=== PATIENT | female | born 1985 | race Caucasian/White ===

== ENCOUNTER 2018-11-14 16:45 | Emergency (ER) | payer SELFPAY ==
[2018-11-14 18:29] LABS: Absolute Lymphocytes (CBC) 3.7 K/uL (0.7-4.9); Absolute Monocytes 0.6 K/uL (0.1-1.3); Absolute Neutrophil 4.8 K/uL (1.8-8.0); Eosinophils % 1.9 % (0-4.4); Hematocrit 46.1 % (36.0-45.0); Lymphocytes % 39.3 % (15.3-44.8); MPV 7.6 fL (7.6-11.3); Monocytes % 6.6 % (3.3-12.3); RBC Red Blood Cell Count 5.19 M/uL (3.86-4.86)
[2018-11-14 18:51] LABS: ALT/SGPT 73 U/L (12-78); AST/SGOT 26 U/L (15-37); Albumin 4.1 g/dL (3.4-5.0); Alkaline Phosphatase 78 U/L (45-117); BUN Blood Urea Nitrogen 15 mg/dL (7-18); Bicarbonate 30 mmol/L (21-32); Bilirubin Direct < 0.1 mg/dL (0-0.2); Bilirubin Total 0.4 mg/dL (0.2-1.0); Glucose Level 121 mg/dL (74-106); Lipase 352 U/L (73-393); Potassium 4.1 mmol/L (3.5-5.1); Protein, Total 7.4 g/dL (6.4-8.2); Sodium Level 138 mmol/L (136-145)
--- NOTE | 2018-11-14 19:24 | RAD REPORT ---
EXAM DESCRIPTION: CT - Abdomen Pelvis W Contrast - 11/14/2018 7:12 pm CLINICAL HISTORY: Abdominal pain COMPARISON: None. TECHNIQUE: Biphasic, helical CT imaging of the abdomen and pelvis was performed following 100 ml non -ionic IV contrast. No oral contrast administered All CT scans are performed using dose optimization technique as appropriate and may include automated exposure control or mA/KV adjustment according to patient size. FINDINGS: No suspicious findings in the lung bases. The liver, spleen, and pancreas show no suspicious findings. Cholecystectomy clips are present. No bi liary tree dilatation. Symmetric renal function is seen with no hydronephrosis or suspicious renal mass. No pyelonephritis o r acute parenchymal process. No bladder abnormalities. No adrenal abnormalities. Uterus is absent. Ov chinmay appear to be absent as well. No adnexal mass. Multiple phleboliths are present. No gastric wall thickening or mass. Gastric assessment is limited due to only a small quantity of con tent within the lumen. No dilated large or small bowel. The appendix is normal. No focal or diffuse G I abnormality seen to explain rectal blood. No free air, free fluid or inflammatory stranding. No h ernia, mass or bulky lymphadenopathy. No suspicious bony findings. No acute vascular finding. IMPRESSION: Contrast enhanced CT abdomen and pelvis showing no acute finding.
[2018-11-14 19:38] LABS: Urine Blood NEGATIVE (NEG); Urine Glucose NEGATIVE (NEG); Urine Protein NEGATIVE (NEG); Urine Specific Gravity >1.030 (1.005-1.030); Urine pH 5.5 (5.0-7.0)
--- NOTE | 2018-11-14 19:44 | EDPHYS ---
Physician Documentation [facility] Name: Frieda Simon Age: 33 yrs Sex: Female : 1985 Arrival Date: 11/14/2018 Time: 16:48 Bed 18 Private MD: ED Physician Willie Yee HPI: 11/14 17:22 This 33 yrs old Female presents to ER via Ambulatory with complaints of jmm Abdominal Swelling, Bloody Stools. 17:22 The patient presents with abdominal pain that is diffuse. Onset: The symptoms/episode jmm began/occurred gradually, 1 day(s) ago. The symptoms do not radiate. Associated signs and symptoms: Pertinent positives:. This is a 33 year old female with no chronic medical conditions that presents to the ED with complaints of abdominal distension beginning last night with bright red bowel movements. Patient states she is currently on antibiotics for h.pylori infection. Denies fever. . 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 - Social history:: Smoking status: Patient uses tobacco products, smokes one-half pack cigarettes per day. - Ebola Screening: : Patient negative for fever greater than or equal to 101.5 degrees Fahrenheit, and additional compatible Ebola Virus Disease symptoms Patient denies exposure to infectious person Patient denies travel to an Ebola-affected area in the 21 days before illness onset No symptoms or risks identified at this time. ROS: 17:22 Constitutional: Negative for fever, chills, and weight loss, Cardiovascular: Negative jmm for chest pain, palpitations, and edema, Respiratory: Negative for shortness of breath, cough, wheezing, and pleuritic chest pain. 17:22 Back: Negative for injury and pain, Skin: Negative for injury, rash, and discoloration. 17:22 Abdomen/GI: Positive for abdominal pain, rectal bleeding. 17:22 Abdomen/GI: Positive for abdominal distension. 17:22 All other systems are negative. Exam: 17:22 Constitutional: This is a well developed, well nourished patient who is awake, alert, jmm and in no acute distress. Head/Face: atraumatic. Eyes: EOMI, no conjunctival erythema appreciated ENT: Moist Mucus Membranes Neck: Trachea midline, Supple Chest/axilla: Normal chest wall appearance and motion. Cardiovascular: Regular rate and rhythm. No edema appreciated Respiratory: Normal respirations, no respiratory distress appreciated 17:22 Abdomen/GI: Inspection: abdomen appears normal, Bowel sounds: normal, Palpation: soft, mild abdominal tenderness, in all quadrants. 17:22 Back: ROM is normal. 17:22 Musculoskeletal/extremity: ROM: intact in all extremities. 17:22 Skin: Appearance: Color: normal in color. 17:22 Neuro: Orientation: is normal, Mentation: is normal, Memory: is normal. 17:22 Psych: Behavior/mood is pleasant, cooperative. Vital Signs: 17:00 Pulse 87; Resp 17; Temp 98.6; Pulse Ox 100% on R/A; Weight 99.79 kg; Height 5 ft. 8 in. sg (172.72 cm); Pain 8/10; 17:00 BP 142 / 87; sg 17:49 BP 97 / 57; Pulse 79; Resp 18; Pulse Ox 98% on R/A; aj1 18:40 BP 110 / 71; Pulse 70; Resp 18; Pulse Ox 100% on R/A; aj1 19:30 BP 107 / 85; Pulse 68; Resp 16; Pulse Ox 100% on R/A; jb4 17:00 Body Mass Index 33.45 (99.79 kg, 172.72 cm) sg MDM: 17:22 Patient medically screened. [facility] 19:43 Data reviewed: vital signs, nurses notes. Counseling: I had a detailed discussion with mally the patient and/or guardian regarding: the historical points, exam findings, and any diagnostic results supporting the discharge/admit diagnosis, lab results, radiology results, the need for outpatient follow up, to return to the emergency department if symptoms worsen or persist or if there are any questions or concerns that arise at home. ED course: Patient is alert and non toxic in appearance in the ED. Patient was advised to follow up with GI for further evaluation. patient is otherwise given strict return precautions. patient understood and agrees with the plan of care. . 11/14 17: Order name: Basic Metabolic Panel [facility] 11/14 17:27 Order name: CBC with Diff [facility] 11/14 16:27 Order name: Creatinine for Radiology [facility] 11/14 17:27 Order name: Hepatic Function [facility] 11/14 17:27 Order name: Lipase [facility] 11/14 17:27 Order name: Type And Screen; Complete Time: 20:03 [facility] 11/14 17:27 Order name: Basic Metabolic Panel; Complete Time: 19:02 [facility] 11/14 17:27 Order name: CBC with Automated Diff; Complete Time: 19:02 [facility] 11/14 17:27 Order name: Creatinine (Radiology Only); Complete Time: 19:02 [facility] 11/14 17:27 Order name: Liver (Hepatic) Function; Complete Time: 19:02 [facility] 11/14 17:27 Order name: Lipase; Complete Time: 19:02 [facility] 11/14 18:50 Order name: Urine Dipstick--Ancillary (enter results); Complete Time: 19:44 11/14 18:50 Order name: Urine --Ancillary (enter results); Complete Time: 19:44 11/14 19:55 Order name: ABO/RH no charge; Complete Time: 20:03 [facility] 11/14 17:27 Order name: IV Saline Lock; Complete Time: 18:15 [facility] 11/14 17:27 Order name: Labs collected and sent; Complete Time: 18:15 [facility] 11/14 17:27 Order name: CT Abd/Pelvis - W/Contrast; Complete Time: 19:26 [facility] Administered Medications: No medications were administered Disposition: 11/15 18:56 Co-signature as Attending Physician, Willie Yee MD I agree with the assessment and kdr plan of care. Disposition: 11/14/18 19:43 Discharged to Home. Impression: Unspecified abdominal pain. - Condition is Stable. - Discharge Instructions: Abdominal Pain, Adult, Rectal Bleeding. - Medication Reconciliation Form, Thank You Letter, Antibiotic Education, Prescription Opioid Use form. - Follow up: Fiorella Dang MD; When: 2 - 3 days; Reason: Recheck today's complaints, Continuance of care, Re-evaluation by your physician. Signatures: Dispatcher [employer] [facility] Kishore Davis RN RN sg Willie Yee MD MD kdr Mickail, Joel, PA PA [facility] Vignesh Gaston RN RN jb4 Corrections: (The following items were deleted from the chart) 11/14 20:11 19:43 11/14/2018 19:43 Discharged to Home. Impression: Unspecified abdominal pain. jb4 Condition is Stable. Forms are Medication Reconciliation Form, Thank You Letter, Antibiotic Education, Prescription Opioid Use. Follow up: Fiorella Dang; When: 2 - 3 days; Reason: Recheck today's complaints, Continuance of care, Re-evaluation by your physician. mally
--- NOTE | 2018-11-14 19:44 | ER ---
Nurse's Notes [facility] Name: Frieda Simon Age: 33 yrs Sex: Female : 1985 Arrival Date: 11/14/2018 Time: 16:48 Bed 18 Private MD: Diagnosis: Unspecified abdominal pain Presentation: 11/14 17:02 Presenting complaint:. Transition of care: patient was not received from another setting of care. Onset of symptoms was November 14, 2018. Risk Assessment: Do you want to hurt yourself or someone else? Patient reports no desire to harm self or others. Initial Sepsis Screen: Does the patient meet any 2 criteria? No. Patient's initial sepsis screen is negative. Does the patient have a suspected source of infection? Yes: Acute abdominal pain. Care prior to arrival: None. 17:02 Acuity: AMEE 3 sg 17:02 Method Of Arrival: Ambulatory 17:03 Presenting complaint: Patient states: Currently being treated for H Pylori by providers sg at the [facility], pt reports that she started medications on the 11/11/18 has not noticed any improvement, reports getting worse with pain and abdominal distention, pt also reports bright red blood in her stool. [employer]: 17:00 LMP N/A - Hysterectomy sg Historical: - Allergies: 17:02 No Known Allergies; sg - PMHx: 17:01 ADD/ADHD; sg - PSHx: 17:01 Hysterectomy; Thyroidectomy; sg - Immunization history:: Adult Immunizations up to date. - Social history:: Smoking status: Patient uses tobacco products, smokes one-half pack cigarettes per day. - Ebola Screening: : Patient negative for fever greater than or equal to 101.5 degrees Fahrenheit, and additional compatible Ebola Virus Disease symptoms Patient denies exposure to infectious person Patient denies travel to an Ebola-affected area in the 21 days before illness onset No symptoms or risks identified at this time. Screenin:49 Abuse screen: Denies threats or abuse. Denies injuries from another. Nutritional aj1 screening: Has had N/V for 3 or more days. Tuberculosis screening: No symptoms or risk factors identified. 19:00 Fall Risk IV access (20 points). Total Pleitez Fall Scale indicates No Risk (0-24 pts). jb4 Assessment: 17:49 General: Appears in no apparent distress. uncomfortable, Behavior is calm, cooperative, aj1 appropriate for age. Pain: Complains of pain in right upper quadrant and right lower quadrant Pain does not radiate. Pain currently is 8 out of 10 on a pain scale. Quality of pain is described as stabbing, Is intermittent. Neuro: Level of Consciousness is awake, alert, obeys commands, Oriented to person, place, time, situation. Cardiovascular: Patient's skin is warm and dry. Respiratory: Airway is patent Respiratory effort is even, unlabored, Respiratory pattern is regular, symmetrical. GI: Abdomen is round Bowel sounds present X 4 quads. Abdomen is tender to palpation in right upper quadrant and right lower quadrant Reports constipation, diarrhea, bloody stool, nausea, Patient currently denies vomiting. : No signs and/or symptoms were reported regarding the genitourinary system. EENT: No signs and/or symptoms were reported regarding the EENT system. Derm: No signs and/or symptoms reported regarding the dermatologic system. Skin is pink, warm \T\ dry. normal. Musculoskeletal: No signs and/or symptoms reported regarding the musculoskeletal system. Circulation, motion, and sensation intact. 18:40 Reassessment: Patient appears in no apparent distress at this time. No changes from aj1 previously documented assessment. Patient and/or family updated on plan of care and expected duration. Pain level reassessed. Patient is alert, oriented x 3, equal unlabored respirations, skin warm/dry/pink. 19:15 Reassessment: Patient appears in no apparent distress at this time. Patient and/or jb4 family updated on plan of care and expected duration. Pain level reassessed. Patient is alert, oriented x 3, equal unlabored respirations, skin warm/dry/pink. Vital Signs: 17:00 Pulse 87; Resp 17; Temp 98.6; Pulse Ox 100% on R/A; Weight 99.79 kg; Height 5 ft. 8 in. sg (172.72 cm); Pain 8/10; 17:00 BP 142 / 87; sg 17:49 BP 97 / 57; Pulse 79; Resp 18; Pulse Ox 98% on R/A; aj1 18:40 BP 110 / 71; Pulse 70; Resp 18; Pulse Ox 100% on R/A; aj1 19:30 BP 107 / 85; Pulse 68; Resp 16; Pulse Ox 100% on R/A; jb4 17:00 Body Mass Index 33.45 (99.79 kg, 172.72 cm) ED Course: 16:48 Patient arrived in ED. rg4 16:53 Arm band placed on. 17:02 Triage completed. 17:12 Mert Girard PA is PHCP. [facility] 17:12 Willie Yee MD is Attending Physician. [facility] 17:27 Lia Quarles, RN is Primary Nurse. aj1 17:37 Radiology exam delayed due to lab results not completed at this time. (BUN/Creatinine). vm2 17:49 Patient has correct armband on for positive identification. Bed in low position. Call aj1 light in reach. Side rails up X 1. 17:49 No provider procedures requiring assistance completed. aj1 17:59 Radiology exam delayed due to lab results not completed at this time. (BUN/Creatinine). 2 18:16 Initial lab(s) drawn, by wi, sent to lab. Inserted saline lock: 20 gauge in right [facility] antecubital area, using aseptic technique. Blood collected. 18:27 Radiology exam delayed due to lab results not completed at this time. (BUN/Creatinine). id 18:50 Urine collected: clean catch specimen, clear. [facility] 18:[address] via wheelchair. 2 19:11 [address] completed. Patient tolerated procedure well. Patient moved back from CT. 2 19:12 CT Abd/Pelvis - W/Contrast In Process Unspecified. EDIN 19:43 Fiorella Dang MD is Referral Physician. [facility] 20:10 IV discontinued, intact, bleeding controlled, No redness/swelling at site. Pressure jb4 dressing applied. Administered Medications: No medications were administered Outcome: 19:43 Discharge ordered by . [facility] 20:10 Discharged to home ambulatory. jb4 20:10 Condition: stable 20:10 Discharge instructions given to patient, Instructed on discharge instructions, follow up and referral plans. Demonstrated understanding of instructions, follow-up care. 20:11 Patient left the ED. jb4 Signatures: Dispatcher [employer] EDMS Lia Quarles, SHAWN RN [email or web address] Kishore Davis RN RN Mert Girard PA PA [facility] Lorraine Vidales 4 Vignesh Gaston RN RN 4 Rigo Schrader Maria [facility] Sheikh, Lanie vm2
[2018-11-14 21:04] VITALS: TEMP 98.6
[2018-11-14 21:10] VITALS: O2SAT 100
[2018-11-14 21:12] VITALS: BP 107/85
== END 2018-11-14 20:11 | disposition home or self-care (01) ==
LOC: ER 16:45
DX: R10.9 Unspecified abdominal pain (principal); F17.210 Nicotine dependence, cigarettes, uncomplicated
CPT/HCPCS: 36415; 74177; 80048; 80076; 81003; 81025; 83690; 85025; 86850; 86900; 86901; 99284; Q9967

== ENCOUNTER 2024-05-13 08:28 | Emergency (ER) | payer OTHER, SELFPAY ==
--- OUTSIDE RECORDS SUMMARY | 2024-05-13 08:33 | XMS REPORT | Continuity of Care Document ---
Author Name Unknown Address [address] [facility]. [address] [place] [address] [facility] Address [address] [facility] [address] [place] [address] Care Team Providers Care Cash On Delivery Clerk Name Role Phone Laci Toney Primary Care Physician Medications Ordered Medication Name Filled Medication Name Start Date Stop Date Current Medication? Ordering Clinician Indication Dosage Frequency Signature (SIG) Comments Components Source Wellbutrin XL 300 mg 24 hr tablet, extended release 2023-0 8-15 00:00: 00 Yes 1mg Osmani Walter Lamictal 25 mg tablet 2023-0 8-15 00:00: 00 Yes 2mg Osmani Walter Wellbutrin XL 300 mg 24 hr tablet, extended release 2023-0 7-16 00:00: 00 Yes 1mg Osmani Walter Lamictal 25 mg tablet 2023-0 7-16 00:00: 00 Yes 2mg Osmani Walter Wellbutrin XL 150 mg 24 hr tablet, extended release 2023-0 6-12 00:00: 00 Yes 1mg Osmani Walter Lamictal 25 mg tablet 2023-0 6-12 00:00: 00 Yes 2mg Osmani Walter amitriptyli ne 25 mg tablet 2023-0 6-12 00:00: 00 Yes 1mg Osmani Levi Walter Wellbutrin XL 150 mg 24 hr tablet, extended release 2023-0 5-29 00:00: 00 Yes 1mg Osmani Walter amitriptyli ne 25 mg tablet 2023-0 5-29 00:00: 00 Yes 1mg Osmani Levi Walter Lamictal 25 mg tablet 2023-0 5-29 00:00: 00 Yes 4mg Osmani Walter mirtazapine 15 mg tablet 01-28 00:00: 00 Yes 1mg Osmani Walter Lamictal 25 mg tablet 01-28 00:00: 00 Yes 1mg Osmani Walter amitriptyli ne 50 mg tablet 01-28 00:00: 00 Yes 1mg Osmani Walter TAKE 2 TABLETS BY MOUTH ON DAY 1, AND THEN TAKE 1 TABLET BY MOUTH ONCE A DAY ON DAY 2 THROUGH DAY 5 03-01 00:00: 00 Yes Osmani Walter TAKE BY MOUTH DIRECTED ON INSIDE OF PACKAGE 03-01 00:00: 00 Yes Osmani Walter hydroxyzine HCl 50 mg tablet 12-24 00:00: 00 Yes 12mg Osmani Walter Cymbalta 60 mg capsule,del ayed release 12-24 00:00: 00 Yes 1mg Osmani Walter Cymbalta 30 mg capsule,del ayed release 12-24 00:00: 00 Yes 1mg Osmani Walter loratadine- pseudoephed rine ER 10 mg-240 mg tablet,exte nded [id number] 2018-09 00:00: 00 Yes 1mg Osmani Walter prednisone 20 mg tablet 2018-09 00:00: 00 Yes 1mg Osmani Walter amoxicillin 875 mg-potassiu m clavulanate 125 mg tablet 2018-09 00:00: 00 Yes 1mg Osmani Walter Bromfed DM 2 mg-30 mg-10 mg/5 mL oral syrup 2018-09 00:00: 00 Yes 5mg/5 mL Osmani Walter Cymbalta 60 mg capsule,del ayed release 2018-09 00:00: 00 Yes 2mg Osmani Walter hydroxyzine HCl 50 mg tablet 2018-09 00:00: 00 Yes 1mg Osmani Walter Cymbalta 60 mg capsule,del ayed release 2018-09 00:00: 00 Yes 2mg Osmani Walter hydroxyzine HCl 50 mg tablet 03-28 00:00: 00 Yes 1mg Osmani Walter trazodone 50 mg tablet 03-28 00:00: 00 Yes 1mg Osmani Walter Cymbalta 60 mg capsule,del ayed release 0 03-28 00:00: 00 Yes 2mg Osmani Walter trazodone 50 mg tablet 0 03-13 00:00: 00 Yes 51mg Osmani Walter Cymbalta 60 mg capsule,del ayed release 0 6 00:00: 00 Yes 1mg Osmani Walter trazodone 50 mg tablet 0 6 00:00: 00 Yes 51mg Osmani Walter Cymbalta 60 mg capsule,del ayed release 0 6 00:00: 00 Yes 1mg Osmani Walter Cymbalta 60 mg capsule,del ayed release 0 31 00:00: 00 Yes 1mg Osmani Walter Protonix 40 mg tablet,randy yed release 0 18 00:00: 00 Yes 1mg Osmani Walter clonidine HCl 0.2 mg tablet 0 16 00:00: 00 Yes 1mg Osmani Walter Cymbalta 30 mg capsule,del ayed release 0 16 00:00: 00 Yes 1mg Osmani Walter Cymbalta 60 mg capsule,del ayed release 0 16 00:00: 00 Yes 1mg Osmani Walter clonidine HCl 0.1 mg tablet 0 23 00:00: 00 Yes 1mg Osmani Walter Cymbalta 60 mg capsule,del ayed release 0 23 00:00: 00 Yes 1mg Osmani Wlater hydroxyzine HCl 50 mg tablet 0 19 00:00: 00 Yes 1mg Osmani Walter clonidine HCl 0.1 mg tablet 0 -19 00:00: 00 Yes 1mg Osmani Walter Cymbalta 60 mg capsule,del ayed release 0 19 00:00: 00 Yes 1mg Osmani Walter prednisone 5 mg tablet 0 15 00:00: 00 Yes 1mg Osmani Walter clarithromy constance 500 mg tablet 0 2-25 00:00: 00 Yes 1mg Osmani Walter amoxicillin 500 mg tablet 0 2-25 00:00: 00 Yes 2mg Osmani Walter pantoprazol e 40 mg tablet,randy yed release 11-11 00:00: 00 Yes 1mg Osmani Walter Cymbalta 30 mg capsule,del ayed release 11-06 00:00: 00 Yes 1mg Osmani Walter fluticasone propionate 50 mcg/actuati on nasal spray,suspe nsion 11-05 00:00: 00 Yes 2mcg/ac tuation Osmani Walter ProAir HFA 90 mcg/actuati on aerosol inhaler 11-05 00:00: 00 Yes 2mcg/ac tuation Osmani Walter prednisone 50 mg tablet 11-05 00:00: 00 Yes 1mg Osmani Walter loratadine 10 mg tablet 11-05 00:00: 00 Yes 1mg Osmani Walter promethazin e-DM 6.25 mg-15 mg/5 mL oral syrup 11-05 00:00: 00 Yes 5mg/5 mL Osmani Walter cephalexin 500 mg capsule 10-29 00:00: 00 Yes 1mg Osmani Walter Vital Signs Vital Name Observation Time Observation Value Comments S ource Weight Measured 2024-05-06 09:56:00 240.60 pounds Osmani Walter Height Measured 2024-05-06 09:56:00 68.11 inches Osmani Walter Body Temperature 2024-05-06 09:56:00 97.80 degrees Osmani Walter Heart Rate 2024-05-06 09:56:00 89.00 /min Sera en F Jose Angel Respiratory Rate 2024-05-06 09:56:00 18.00 /min Osmani Walter BP Systolic 2024-05-06 09:56:00 117 mm[Hg] Step hen F Jose Angel BP Diastolic 2024-05-06 09:56:00 84 mm[Hg] Valeriano phen F Jose Angel BP Systolic 2019-07-30 17:29:00 118 mm[Hg] Step hen F Jose Angel BP Diastolic 2019-07-30 17:29:00 79 mm[Hg] Valeriano phen F Jose Angel Weight Measured 2019-07-30 17:29:00 226.60 pounds Osmani Walter Height Measured 2019-07-30 17:29:00 68.11 inches Osmani Walter Body Temperature 2019-07-30 17:29:00 98.80 degrees Osmani F Jose Angel Heart Rate 2019-07-30 17:29:00 93.00 /min Sera en F Jose Angel Respiratory Rate 2019-07-30 17:29:00 16.00 /min Osmani F Jose Angel BP Systolic 2019-02-01 10:27:00 113 mm[Hg] Step hen F Jose Angel BP Diastolic 2019-02-01 10:27:00 75 mm[Hg] Valeriano phen F Jose Angel Weight Measured 2019-02-01 10:27:00 242.20 pounds Osmani F Jose Angel Height Measured 2019-02-01 10:27:00 68.11 inches Osmani F Jose Angel Body Temperature 2019-02-01 10:27:00 98.40 degrees Osmani F Jose Angel Heart Rate 2019-02-01 10:27:00 84.00 /min Sera en F Jose Angel Respiratory Rate 2019-02-01 10:27:00 17.00 /min Osmani F Jose Angel BP Systolic 2019-01-30 16:18:00 148 mm[Hg] Step hen F Jose Angel BP Diastolic 2019-01-30 16:18:00 91 mm[Hg] Valeriano phen F Jose Angel Weight Measured 2019-01-30 16:18:00 243.40 pounds Osmani F Jose Angel Height Measured 2019-01-30 16:18:00 68.11 inches Osmani F Jose Angel Body Temperature 2019-01-30 16:18:00 98.00 degrees Osmani F Jose Angel Heart Rate 2019-01-30 16:18:00 93.00 /min Sera en F Jose Angel Respiratory Rate 2019-01-30 16:18:00 18.00 /min Osmani F Jose Angel BP Systolic 2018-12-03 10:59:00 119 mm[Hg] Step hen F Jose Angel BP Diastolic 2018-12-03 10:59:00 78 mm[Hg] Valeriano phen F Jose Angel Weight Measured 2018-12-03 10:59:00 242.60 pounds Osmani F Jose Angel Height Measured 2018-12-03 10:59:00 68.11 inches Osmani F Jose Angel Body Temperature 2018-12-03 10:59:00 98.90 degrees Osmani F Jose Angel Heart Rate 2018-12-03 10:59:00 86.00 /min Sera en F Jose Angel Respiratory Rate 2018-12-03 10:59:00 16.00 /min Osmani F Jose Angel BP Systolic 2018-11-29 13:04:00 112 mm[Hg] Step hen F Jose Angel BP Diastolic 2018-11-29 13:04:00 80 mm[Hg] Valeriano phen F Jose Angel Weight Measured 2018-11-29 13:04:00 239.00 pounds Osmani F Jose Angel Height Measured 2018-11-29 13:04:00 68.11 inches Osmani F Jose Angel Body Temperature 2018-11-29 13:04:00 98.00 degrees Osmani F Jose Angel Heart Rate 2018-11-29 13:04:00 94.00 /min Sera en F Jose Angel Respiratory Rate 2018-11-29 13:04:00 16.00 /min Osmani F Jose Angel BP Systolic 2018-11-11 15:19:00 115 mm[Hg] Step hen F Jose Angel BP Diastolic 2018-11-11 15:19:00 82 mm[Hg] Valeriano phen F Jose Angel Weight Measured 2018-11-11 15:19:00 239.20 pounds Osmani F Jose Angel Height Measured 2018-11-11 15:19:00 68.11 inches Osmani F Jose Angel Body Temperature 2018-11-11 15:19:00 98.70 degrees Osmani F Jose Angel Heart Rate 2018-11-11 15:19:00 90.00 /min Sera en F Jose Angel Respiratory Rate 2018-11-11 15:19:00 18.00 /min Osmani F Jose Angel BP Systolic 2018-11-06 10:06:00 113 mm[Hg] Step hen F Jose Angel BP Diastolic 2018-11-06 10:06:00 77 mm[Hg] Valeriano phen F Jose Angel Weight Measured 2018-11-06 10:06:00 237.80 pounds Osmani F Jose Angel Height Measured 2018-11-06 10:06:00 68.11 inches Osmani F Jose Angel Body Temperature 2018-11-06 10:06:00 98.20 degrees Osmani F Jose Angel Heart Rate 2018-11-06 10:06:00 101.00 /min Step hen F Jose Angel Respiratory Rate 2018-11-06 10:06:00 18.00 /min Osmani F Jose Angel BP Systolic 2018-11-05 15:37:00 103 mm[Hg] Step hen F Jose Angel BP Diastolic 2018-11-05 15:37:00 68 mm[Hg] Valeriano phen F Jose Angel Weight Measured 2018-11-05 15:37:00 237.80 pounds Osmani F Jose Angel Height Measured 2018-11-05 15:37:00 68.11 inches Osmani Walter Body Temperature 2018-11-05 15:37:00 98.60 degrees Osmani Walter Heart Rate 2018-11-05 15:37:00 86.00 /min Sera Walter Respiratory Rate 2018-11-05 15:37:00 16.00 /min Osmani Walter Encounters Start Date/Time End Date/Time Encounter Type Admission Type Attending [facility] Care Department Encounter ID Source 2024-05-06 09:56:42 2024-05-06 09:56:42 Outpatient SFA SFA [id number] Osmani Walter 2024-05-06 00:00:00 2024-05-06 00:00:00 Outpatient Visit [facility] [id number] Osmani Walter 2024-04-29 11:49:47 2024-04-29 11:49:47 Outpatient SFA [id number] [id number] Osmani Walter 2024-02-10 14:23:09 2024-02-10 14:23:09 Outpatient SFA [facility] [id number] Osmani Walter 2024-01-28 11:36:29 2024-01-28 11:36:29 Outpatient SFA [facility] [id number] Osmani Walter Results Test Description Test Time Test Comments Results Result Co mments Source [id number] 06:42:47* Test Item Value Reference Range Interpretation Comme nts LIPASE (test code = 2058) 49 U/L 13-60 UNLESS OTHERWISE INDICATED, ALL TESTING PERFORMED AT [facility] [address] [place] [address] SASH REPAIRER: RICO BETHEA M.D. CLIA NUMBER [id number] [place] [id number] 00:00:00* Test Item Value Reference Range Interpretation Comme nts AMYLASE (test code = 2205) 46 U/L Osmani [id number] 00:00:00* Test Item Value Reference Range Interpretation Comme nts LIPASE (test code = 2058) 49 U/L Osmani WalterCOMPREHENSIVE METABOLIC [id number] 04:51:27* Test Item Value Reference Range Interpretation Comme nts GLUCOSE (test code = 2217) 96 MG/DL 70-99 BUN (test code = 220) 14 MG/DL 6-20 CREATININE (test code = 2214) 1.00 MG/DL 0.60-1.30 eGFR (2020 CKD-EPI) (test co de = 35224) 73 ML/MIN/1.73 >60 CALC BUN/CREAT (test code = 2235) 14 RATIO 6-28 SODIUM (test code = 223) 141 MEQ/L 133-146 POTASSIUM (test code = 2228) 4.1 MEQ/L 3.5-5.4 CHLORIDE (test code = 2215) 105 MEQ/L 95-107 CARBON DIOXIDE (test code = 2206) 25 MEQ/L 19-31 CALCIUM (test code = 2209) 9.4 MG/DL 8.5-10.5 PROTEIN, TOTAL (test code = 2229) 7.0 G/DL 6.1-8.3 ALBUMIN (test code = 2201) 4.8 G/DL 3.5-5.2 CALC GLOBULIN (test code = 2240) 2.2 G/DL 1.9-3.7 CALC A/G RATIO (test code = 2234) 2.2 RATIO 1.0-2.6 BILIRUBIN, TOTAL (test code = 7) 0.5 MG/DL <=1.2 ALKALINE PHOSPHATASE (test code = 2204) 63 U/L 40-112 AST (test code = 2218) 18 U/L 9-40 ALT (test code = 2219) 27 U/L 5-40 LIPID [id number] 04:51:27* Test Item Value Reference Range Interpretation Comme nts CHOLESTEROL (test code = 2210) 252 MG/DL <200 H TRIGLYCERIDES (test code = 2232) 170 MG/DL <150 H HDL CHOLESTEROL (test code = 2220) 76 MG/DL >39 CALC LDL CHOL (test code = 2237) 145 MG/DL <100 H NOTE: CALCULATED LDL IS BASED ON STACIE-ASHBY METHOD WHICHINCLUDES ADJUSTABLE TRIGLYCERIDE:VLDL CHOLESTEROL RATIO.THIS FACTOR VARIES BY MEASURED TRIGLYCERIDE AND NON-HDLCHOLESTEROL CONCENTRATIONS WITH INCREASED CALCULATED LDL SEENIN HIGHER TRIGLYCERIDE OR LOWER NON-HDL SPECIMENS. FOR MOREINFORMATION, SEE CLIENT ANNOUNCEMENT AT [email or web address] RISK RATIO LDL/HDL (test code = 2238) 1.91 RATIO <3.22 TSH, THIRD [id number] 04:48:34* Test Item Value Reference Range Interpretation Comme [facility] TSH, THIRD GENERATION (test code = 2821) 1.890 UIU/ML 0.400-4.100 VITAMIN D, 25 [id number] 04:47:43* Test Item Value Reference Range Interpretation Comme [facility] VITAMIN D, 25 OH (test code = 4958) 31 NG/ML SEE BELOW NOTE: 25-HYDR OXYVITAMIN D ASSAY INCLUDES 25-HYDROXYVITAMIN D2 AND D3. INTERPRETIVE RANGES PEDIATRIC (<17 YEARS) . . . . . . . . . . . NG/ML 20-100ADULT: INSUFFICIENT . . . . . . . . . . . . . . NG/ML <20 SUBOPTIMAL . . . . . . . . . . . . . . . NG/ML 20-29 OPTIMAL . . . . . . . . . . . . . . . . . NG/ML 30-100 UNLESS OTHERWISE INDICATED, ALL TESTING PERFORMED AT [facility] [address] [place] [address] SASH REPAIRER: RICO BETHEA M.D. [place] NUMBER [id number] [place] [id number] HEMOGLOBIN [id number] 03:49:59* Test Item Value Reference Range Interpretation Comme [facility] HEMOGLOBIN A1c (test code = 82537) 5.4 % 4.2-5.6 CBC W/AUTO DIFF WITH [id number] 02:34:33* Test Item Value Reference Range Interpretation Comme [facility] WBC (test code = 1001) 4.9 K/UL 3.5-11.0 RBC (test code = 1002) 4.78 M/UL 3.80-5.40 HEMOGLOBIN (test code = 1003) 14.6 G/DL 11.5-15.5 HEMATOCRIT (test code = 1004) 43.7 % 34.0-45.0 MCV (test code = 1005) 91.4 fL 80.0-99.0 MCH (test code = 1006) 30.5 PG 25.0-33.0 MCHC (test code = 1007) 33.4 G/DL 31.0-36.0 RDW (test code = 1038) 12.3 % 11.5-15.0 NEUTROPHILS (test code = 1008) 51.1 % LYMPHOCYTES (test code = 1010) 36.7 % MONOCYTES (test code = 1011) 5.3 % EOSINOPHILS (test code = 1012) 6.1 % BASOPHILS (test code = 1013) 0.6 % IMMATURE GRANULOCYTES (test code = 1036) 0.2 % NUCLEATED RBCS (test code = 1065) 0.0 /100 WBC'S See_Comment [Automated messa ge] The system which generated this result transmitted reference range: 0.0. The reference range was not used to interpret this result as normal/abnormal. PLATELET COUNT (test code = 1015) 286 K/UL 130-400 ABSOLUTE NEUTROPHILS (test code = 1066) 2.50 K/UL 1.50-7.50 ABSOLUTE LYMPHOCYTES (test code = 1067) 1.80 K/UL 1.00-4.00 ABSOLUTE MONOCYTES (test code = 1068) 0.26 K/UL 0.20-1.00 ABSOLUTE EOSINOPHILS (test code = 1040) 0.30 K/UL 0.00-0.50 ABSOLUTE BASOPHILS (test code = 1069) 0.03 K/UL 0.00-0.20 ABS IMMATURE GRANULOCYTES (test code = 1020) 0.01 K/UL 0.00-0.10 ABS NUCLEATED RBCS (test code = 98207) 0.00 K/UL 0.00-0.11 CBC W/AUTO [id number] 00:00:00* Test Item Value Reference Range Interpretation Comme nts WBC (test code = 1001) 4.9 K/UL RBC (test code = 1002) 4.78 M/UL HEMOGLOBIN (test code = 1003) 14.6 G/DL HEMATOCRIT (test code = 1004) 43.7 % MCV (test code = 1005) 91.4 fL MCH (test code = 1006) 30.5 PG MCHC (test code = 1007) 33.4 G/DL RDW (test code = 1038) 12.3 % NEUTROPHILS (test code = 1008) 51.1 % LYMPHOCYTES (test code = 1010) 36.7 % MONOCYTES (test code = 1011) 5.3 % EOSINOPHILS (test code = 1012) 6.1 % BASOPHILS (test code = 1013) 0.6 % IMMATURE GRANULOCYTES (test code = 1036) 0.2 % NUCLEATED RBCS (test code = 1065) 0.0 /100WBC'S PLATELET COUNT (test code = 1015) 286 K/UL ABSOLUTE NEUTROPHILS (test c ode = 1066) 2.50 K/UL ABSOLUTE LYMPHOCYTES (test c ode = 1067) 1.80 K/UL ABSOLUTE MONOCYTES (test cod e = 1068) 0.26 K/UL ABSOLUTE EOSINOPHILS (test c ode = 1040) 0.30 K/UL ABSOLUTE BASOPHILS (test cod e = 1069) 0.03 K/UL ABS IMMATURE GRANULOCYTES (t est code = 1020) 0.01 K/UL ABS NUCLEATED RBCS (test cod e = 76166) 0.00 K/UL Osmani WalterCOMPREHENSIVE METABOLIC [id number] 00:00:00* Test Item Value Reference Range Interpretation Comme nts GLUCOSE (test code = 2217) 96 MG/DL BUN (test code = 2208) 14 MG/DL CREATININE (test code = 2214) 1.00 MG/DL eGFR (2020 CKD-EPI) (test co de = 24006) 73 ML/MIN/1.73 CALC BUN/CREAT (test code = 2235) 14 RATIO SODIUM (test code = 2231) 141 MEQ/L POTASSIUM (test code = 2228) 4.1 MEQ/L CHLORIDE (test code = 2215) 105 MEQ/L CARBON DIOXIDE (test code = 2206) 25 MEQ/L CALCIUM (test code = 2209) 9.4 MG/DL PROTEIN, TOTAL (test code = 2229) 7.0 G/DL ALBUMIN (test code = 2201) 4.8 G/DL CALC GLOBULIN (test code = 2240) 2.2 G/DL CALC A/G RATIO (test code = 2234) 2.2 RATIO BILIRUBIN, TOTAL (test code = 2207) 0.5 MG/DL ALKALINE PHOSPHATASE (test code = 2204) 63 U/L AST (test code = 2218) 18 U/L ALT (test code = 2219) 27 U/L Osmani WalterH, THIRD [id number] 00:00:00* Test Item Value Reference Range Interpretation Comme nts TSH, THIRD GENERATION (test code = 2821) 1.890 UIU/ML Osmani WalterLIPID [id number] 00:00:00* Test Item Value Reference Range Interpretation Comme nts CHOLESTEROL (test code = 2210) 252 MG/DL TRIGLYCERIDES (test code = 2232) 170 MG/DL HDL CHOLESTEROL (test code = 2220) 76 MG/DL CALC LDL CHOL (test code = 2237) 145 MG/DL RISK RATIO LDL/HDL (test cod e = 2238) 1.91 RATIO Osmani WalterHEMOGLOBIN [id number] 00:00:00* Test Item Value Reference Range Interpretation Comme nts HEMOGLOBIN A1c (test code = 35510) 5.4 % Osmani WalterVITAMIN D, 25 [id number] 00:00:00* Test Item Value Reference Range Interpretation Comme nts VITAMIN D, 25 OH (test code = 4958) 31 NG/ML Osmani WalterH. PYLORI (BREATH)[id number] 00:00:00* Test Item Value Reference Range Interpretation Comme nts H. PYLORI (BREATH) (test cod e = 11132) NEGATIVE Osmani WalterCULTURE, [id number] 00:00:00* Test Item Value Reference Range Interpretation Comme nts CULTURE, URINE (test code = 70236) SPECIMEN NUMBER: [id number] Osmani WalterVITAMIN D, 25 [id number] 00:00:00* Test Item Value Reference Range Interpretation Comme nts VITAMIN D, 25 OH (test code = 4958) 30 NG/ML Osmani [id number] 00:00:00* Test Item Value Reference Range Interpretation Comme nts RPR RESULT (test code = 3501) NON-REACTIVE RPR TITER (test code = 3500) NOT INDIC. TITER Osmani WalterHEMOGLOBIN [id number] 00:00:00* Test Item Value Reference Range Interpretation Comme nts HEMOGLOBIN A1c (test code = 31532) 5.4 % Osmani WalterLIPID [id number] 00:00:00* Test Item Value Reference Range Interpretation Comme nts CHOLESTEROL (test code = 2210) 238 MG/DL TRIGLYCERIDES (test code = 2232) 319 MG/DL HDL CHOLESTEROL (test code = 2220) 50 MG/DL CALC LDL CHOL (test code = 2237) 124 MG/DL RISK RATIO LDL/HDL (test cod e = 2238) 2.48 RATIO Osmani WalterCOMPREHENSIVE METABOLIC [id number] 00:00:00* Test Item Value Reference Range Interpretation Comme nts GLUCOSE (test code = 2217) 105 MG/DL BUN (test code = 2208) 10 MG/DL CREATININE (test code = 2214) 0.75 MG/DL eGFR AMER. (test cod e = 18266) 120 ML/MIN/1.73 eGFR NON- AMER. (test code = 29573) 103 ML/MIN/1.73 CALC BUN/CREAT (test code = 2235) 13 RATIO SODIUM (test code = 2231) 145 MEQ/L POTASSIUM (test code = 2228) 4.1 MEQ/L CHLORIDE (test code = 2215) 106 MEQ/L CARBON DIOXIDE (test code = 2206) 26 MEQ/L CALCIUM (test code = 2209) 9.5 MG/DL PROTEIN, TOTAL (test code = 2229) 7.0 G/DL ALBUMIN (test code = 2201) 4.6 G/DL CALC GLOBULIN (test code = 2240) 2.4 G/DL CALC A/G RATIO (test code = 2234) 1.9 RATIO BILIRUBIN, TOTAL (test code = 2207) 0.2 MG/DL ALKALINE PHOSPHATASE (test code = 2204) 67 U/L AST (test code = 2218) 28 U/L ALT (test code = 2219) 40 U/L Osmani WalterTHYROID II PROFILE (T3U, T4, T7, TSH)2018-10-31 00:00:00* Test Item Value Reference Range Interpretation Comme nts T-UPTAKE (test code = 2817) 33.1 % THYROX. BIND. CAPAC. (test c ode = 12677) 1.0 T4 (THYROXINE) (test code = 2819) 7.1 UG/DL CORRECTED T4 (FTI) (test cod e = 2820) 7.1 UG/DL TSH, THIRD GENERATION (test code = 2821) 2.260 UIU/ML Osmani WalterGC, AMPLIFIED, [id number] 00:00:00* Test Item Value Reference Range Interpretation Comme nts GONORRHEA, TMA (test code = 61476) NEGATIVE Osmani WalterTRICHOMONAS, URINE, [id number] 00:00:00* Test Item Value Reference Range Interpretation Comme terrie TRICHOMONAS, URINE, AMP (mike t code = 00193) NEGATIVE Osmani WalterFOLIC [id number] 00:00:00* Test Item Value Reference Range Interpretation Comme nts FOLIC ACID (test code = 2695) 11.6 UG/L Osmani WalterVITAMIN [id number] 00:00:00* Test Item Value Reference Range Interpretation Comme terrie VITAMIN B-12 (test code = 2840) 485 PG/ML Osmani WalterHIV AB/AG COMBO RFLX [id number] 00:00:00* Test Item Value Reference Range Interpretation Comme terrie HIV 1/2 4TH GEN, RFLX CONF ( test code = 3514) NON-REACTIVE Osmani WalterACUTE HEPATITIS [id number] 00:00:00* Test Item Value Reference Range Interpretation Comme nts HEPATITIS A IgM (test code = 45909) NON-REACTIVE HEPATITIS B CORE IgM (test c ode = 4644) NON-REACTIVE HEPATITIS B SURF AG (test co de = 2739) NON-REACTIVE HEPATITIS C ANTIBODY (test c ode = 4675) NON-REACTIVE HCV INDEX (test code = 64409) 0.26 INTERPRETATION HEPATITIS A: (test code = 2552) (NOTE) INTERPRETATION HEPATITIS B: (test code = 02390) (NOTE) INTERPRETATION HEPATITIS C: (test code = 98385) (NOTE) Osmani WalterCBC W/AUTO [id number] 00:00:00* Test Item Value Reference Range Interpretation Comme nts WBC (test code = 1001) 5.2 K/UL RBC (test code = 1002) 5.19 M/UL HEMOGLOBIN (test code = 1003) 16.1 G/DL HEMATOCRIT (test code = 1004) 44.8 % MCV (test code = 1005) 86.3 fL MCH (test code = 1006) 31.0 PG MCHC (test code = 1007) 35.9 G/DL RDW (test code = 1038) 12.5 % NEUTROPHILS (test code = 1008) 48.8 % LYMPHOCYTES (test code = 1010) 40.0 % MONOCYTES (test code = 1011) 6.3 % EOSINOPHILS (test code = 1012) 3.8 % BASOPHILS (test code = 1013) 1.1 % PLATELET COUNT (test code = 1015) 226 K/UL Osmani WalterCBC W/AUTO [id number] 00:00:00* Test Item Value Reference Range Interpretation Comme nts WBC (test code = 1001) 4.6 K/UL RBC (test code = 1002) 4.78 M/UL HEMOGLOBIN (test code = 1003) 14.7 G/DL HEMATOCRIT (test code = 1004) 41.5 % MCV (test code = 1005) 86.8 fL MCH (test code = 1006) 30.8 PG MCHC (test code = 1007) 35.4 G/DL RDW (test code = 1038) 12.3 % NEUTROPHILS (test code = 1008) 44.7 % LYMPHOCYTES (test code = 1010) 45.0 % MONOCYTES (test code = 1011) 7.1 % EOSINOPHILS (test code = 1012) 2.8 % BASOPHILS (test code = 1013) 0.4 % PLATELET COUNT (test code = 1015) 214 K/UL Osmani WalterPROTHROMBIN TIME (PT)2018-10-30 00:00:00* Test Item Value Reference Range Interpretation Comme nts PROTHROMBIN TIME (PT) (test code = 1402) 12.0 SECONDS INR (test code = 95237) 0.9 Osmani Walter Notes Date/Time Note Provider Source Osmani Walter [facility]
[2024-05-13] MEDS ORDERED: MORPHINE 4 MG/ML SYR ONE ×2 (08:39→09:46)
[2024-05-13] MEDS ORDERED: ONDANSETRON 4 MG/2 ML VIAL ONE (08:39)
[2024-05-13] MEDS ORDERED: FAMOTIDINE 20 MG/2 ML VIAL IV ONE (08:39)
[2024-05-13 09:00] LABS: Absolute Basophils 0.1 K/uL (0-0.5); Absolute Eosinophils 0.4 K/uL (0-0.5); Absolute Lymphocytes (CBC) 2.7 K/uL (0.7-4.9); Absolute Monocytes 0.5 K/uL (0.1-1.3); Absolute Neutrophil 3.3 K/uL (1.8-8.0); Basophils % 1.1 % (0-1.3); Eosinophils % 5.9 % (0-4.4); Hemoglobin 13.4 g/dL (12.0-15.0); Lymphocytes % 38.7 % (15.3-44.8); MCH 30.1 pg (27.0-35.0); MCHC 33.4 g/dL (32.0-36.0); Monocytes % 6.8 % (3.3-12.3); Neutrophils % 47.5 % (41.7-73.7); Nucleated Red Blood Cells % 0.1 % (0-0); Platelets 264 thou/uL (152-406); RBC Red Blood Cell Count 4.44 M/uL (3.86-4.86); Red Cell Distribution Width 12.4 % (12.1-15.2)
[2024-05-13] MEDS ORDERED: FAMOTIDINE 20 MG TAB ONE (09:01)
[2024-05-13 09:18] LABS: Albumin 3.5 g/dL (3.4-5.0); Albumin/Globulin Ratio 1.2 (1.1-1.8); Anion Gap 7.9 mEq/L (5.0-15.0); Bilirubin Total 0.3 mg/dL (0.2-1.0); Globulin 2.9 g/dL (2.3-3.5); Protein, Total 6.4 g/dL (6.4-8.2)
[2024-05-13 09:20] LABS: Potassium 3.9 mEq/L (3.5-5.1)
--- NOTE | 2024-05-13 10:25 | RAD REPORT ---
EXAM DESCRIPTION: CT - Abdomen Pelvis W Contrast - 05/13/2024 9:55 am CLINICAL HISTORY: ABD PAIN COMPARISON: Abdomen Pelvis W Contrast dated 11/14/2018 TECHNIQUE: Thin cut axial CT imaging of the abdomen and pelvis was performed following intravenous a dministration of iodinated contrast. Multiplanar reformats were generated and reviewed. All CT scans are performed using dose optimization technique as appropriate and may include automated exposure control or mA/KV adjustment according to patient size. FINDINGS: No suspicious findings in the lung bases. The liver, spleen, adrenal glands, and pancreas show no suspicious findings. Gallbladder was surgical ly removed. Symmetric renal function is seen with no hydronephrosis or suspicious renal mass. No dilated bowel loops or bowel wall thickening. No free air, free fluid or inflammatory stranding. A ppendix is unremarkable. Status post hysterectomy. No hernia, mass or bulky lymphadenopathy. The urin jannet bladder is without significant finding. No suspicious bony findings. IMPRESSION: No acute intra-abdominal process.
--- NOTE | 2024-05-13 10:49 | ER ---
Nurse's Notes [facility] Name: Frieda Simon Age: 38 yrs Sex: Female : 1985 Arrival Date: 05/13/2024 Time: 08:28 Bed 20 Private MD: Diagnosis: Upper abdominal pain, unspecified Presentation: 05/13 08:33 Chief complaint: Patient states: ULQ pain X 1 week. Coronavirus screen: At this time, ld1 the client does not indicate any symptoms associated with coronavirus-19. Ebola Screen: No symptoms or risks identified at this time. Initial Sepsis Screen: Does the patient meet any 2 criteria? No. Patient's initial sepsis screen is negative. Does the patient have a suspected source of infection? No. Patient's initial sepsis screen is negative. Risk Assessment: Do you want to hurt yourself or someone else? Patient reports no desire to harm self or others. Onset of symptoms was May 13, 2024. 08:33 Method Of Arrival: EMS: [facility] ld1 08:33 Acuity: AMEE 3 ld1 Triage Assessment: 08:34 General: Appears in no apparent distress. comfortable, Behavior is calm, cooperative, ld1 appropriate for age. Pain: Complains of pain in left upper quadrant Pain does not radiate. Pain currently is 8 out of 10 on a pain scale. Quality of pain is described as throbbing, Pain began suddenly, Is continuous. EENT: No signs and/or symptoms were reported regarding the EENT system. Neuro: Level of Consciousness is awake, alert, obeys commands, Oriented to person, place, time, situation, Appropriate for age. Cardiovascular: Capillary refill < 3 seconds Patient's skin is warm and dry. Respiratory: Airway is patent Respiratory effort is even, unlabored. GI: Abdomen is flat, non-distended, Reports upper abdominal pain. : No signs and/or symptoms were reported regarding the genitourinary system. Derm: No signs and/or symptoms reported regarding the dermatologic system. Musculoskeletal: No signs and/or symptoms reported regarding the musculoskeletal system. Historical: - Allergies: 08:34 adhesive tape; ld1 08:34 meperidine HCl; ld1 - PMHx: 08:34 ADD/ADHD; Depressive disorder; ld1 - Immunization history:: Adult Immunizations up to date. - Infectious Disease History:: Denies. - Social history:: Smoking status: Patient denies any tobacco usage or history of. Screenin:35 [facility] ED Fall Risk Assessment (Adult) History of falling in the last 3 months, ld1 including since admission No falls in past 3 months (0 pts) Confusion or Disorientation No (0 pts) Intoxicated or Sedated No (0 pts) Impaired Gait No (0 pts) Mobility Assist Device Used No (0 pt) Altered Elimination No (0 pt) Score/Fall Risk Level 0 - 2 = Low Risk Oriented to surroundings, Maintained a safe environment, Educated pt \T\ family on fall prevention, incl call for assistance when getting out of bed, Assessed \T\ reinforced patient's understanding of fall precautions, Provided non-skid footwear, Hourly rounding (assess needs \T\ fall precautionary measures) done, Used ambulatory aids as needed (educated on \T\ assisted with), Used gait belt as appropriate. Abuse screen: Denies threats or abuse. Denies injuries from another. Nutritional screening: No deficits noted. Tuberculosis screening: No symptoms or risk factors identified. Assessment: 08:35 Reassessment: See triage assessment. ld1 09:55 Reassessment: Patient appears in no apparent distress at this time. No changes from ld1 previously documented assessment. Patient and/or family updated on plan of care and expected duration. Pain level reassessed. Patient is alert, oriented x 3, equal unlabored respirations, skin warm/dry/pink. 10:00 Reassessment: Pt c/o severe abdominal pain. Notified ERP. See [facility] for orders. ld1 Vital Signs: 08:33 BP 110 / 77; Pulse 63; Resp 18; Temp 98.1(TE); Pulse Ox 100% on R/A; Height 5 ft. 4 in. ld1 ; Pain 8/10; 08:37 Weight 108.86 kg; ld1 09:55 BP 106 / 79; Pulse 68; Resp 18; Pulse Ox 100% on R/A; ld1 10:00 Pain 9/10; ld1 08:33 Pain Scale: Adult ld1 10:00 Pain Scale: Adult ld1 ED Course: 08:30 Patient arrived in ED. bc6 08:33 Frances Owusu, RN is Primary Nurse. ld1 08:34 Triage completed. ld1 08:34 Gurjit Owusu DO is Attending Physician. ms3 08:34 Arm band placed on right wrist. ld1 08:35 Patient has correct armband on for positive identification. Placed in gown. Bed in low ld1 position. Call light in reach. Side rails up X2. clinical research monitor on. Pulse ox on. NIBP on. Door closed. Noise minimized. Warm blanket given. 08:35 No provider procedures requiring assistance completed. ld1 08:52 Test, Serum Sent. ld1 08:52 CBC with Diff Sent. ld1 08:52 CMP Sent. ld1 08:52 Lipase Sent. ld1 09:57 CT Abd/Pelvis - IV Contrast Only In Process Unspecified. EDMS 11:00 IV discontinued, intact, bleeding controlled, No redness/swelling at site. Pressure mb9 dressing applied. Administered Medications: 08:52 Drug: Famotidine IVP 20 mg IVP once; dilute with 10 mL 0.9% NaCl; give over 2 minutes ld1 Route: IVP; Site: left antecubital; 10:06 Follow up: Response: No adverse reaction ld1 08:52 Drug: Ondansetron IVP 4 mg IVP once; over 2 minutes Route: IVP; Site: left antecubital; ld1 10:06 Follow up: Response: No adverse reaction ld1 08:52 Drug: morphine IVP or IV 4 mg IVP once over 4 mins Route: IVP; Infused Over: 4 mins; ld1 Site: left antecubital; 10:06 Follow up: Response: No adverse reaction ld1 10:06 Drug: morphine IVP or IV 4 mg IVP once over 4 mins Route: IVP; Infused Over: 4 mins; ld1 Site: left antecubital; 11:01 Follow up: Response: No adverse reaction mb9 Medication: 08:35 VIS not applicable for this client. ld1 Outcome: 10:48 Discharge ordered by . ms3 11:01 Discharged to home ambulatory, with family, [place] 11:01 Condition: stable 11:01 Discharge instructions given to patient, family, Instructed on discharge instructions, follow up and referral plans. Demonstrated understanding of instructions, follow-up care, medications, Prescriptions given X 2, 11:01 Patient left the ED. [place] Signatures: Dispatcher [employer] EDRI Gurjit Owusu DO DO ms3 Frances Owusu, RN RN ld1 Denzel, Genesis Cunha, RN RN mb9 Anna Mercado 6
--- NOTE | 2024-05-13 10:49 | EDPHYS ---
Physician Documentation [facility] Name: Frieda Simon Age: 38 yrs Sex: Female : 1985 Arrival Date: 05/13/2024 Time: 08:28 Bed 20 Private MD: ED Physician Gurjit Owusu HPI: 05/13 12:32 This 38 yrs old Female presents to ER via EMS with complaints of Abdominal Pain. [facility] 12:32 38-year-old female with past medical history of ADD/ADHD, depression presents to the [facility] emergency department for left upper quadrant abdominal pain that is been ongoing for 1 week. Patient states the symptoms became worse this morning and are worse with deep breaths and movement. Patient states the discomfort is an 8/10. Historical: - Allergies: 08:34 adhesive tape; ld1 08:34 meperidine HCl; ld1 - PMHx: 08:34 ADD/ADHD; Depressive disorder; ld1 - Immunization history:: Adult Immunizations up to date. - Infectious Disease History:: Denies. - Social history:: Smoking status: Patient denies any tobacco usage or history of. ROS: 12:32 Constitutional: Negative for fever, and chills. Neck: Negative for injury, pain, and ms3 swelling, Cardiovascular: Negative for chest pain, and palpitations. Respiratory: Negative for shortness of breath, cough, wheezing, and pleuritic chest pain, 12:32 Skin: Negative for injury, rash, and discoloration, 12:32 Abdomen/GI: Positive for abdominal pain, Exam: 12:32 Constitutional: This is a well developed, well nourished patient who is awake, alert, ms3 and in no acute distress. Head/Face: Normocephalic, atraumatic. Chest/axilla: Normal chest wall appearance and motion. Nontender with no deformity. Cardiovascular: Regular rate and rhythm with a normal S1 and S2. No gallops, murmurs, or rubs. Normal PMI, no JVD. No pulse deficits. Respiratory: Lungs have equal breath sounds bilaterally, clear to auscultation and percussion. No rales, rhonchi or wheezes noted. No increased work of breathing, no retractions or nasal flaring. 12:32 Abdomen/GI: Inspection: abdomen appears normal, Bowel sounds: normal, Palpation: mild abdominal tenderness, in the left upper quadrant, Vital Signs: 08:33 BP 110 / 77; Pulse 63; Resp 18; Temp 98.1(TE); Pulse Ox 100% on R/A; Height 5 ft. 4 in. ld1 ; Pain 8/10; 08:37 Weight 108.86 kg; ld1 09:55 BP 106 / 79; Pulse 68; Resp 18; Pulse Ox 100% on R/A; ld1 10:00 Pain 9/10; ld1 08:33 Pain Scale: Adult ld1 10:00 Pain Scale: Adult ld1 MDM: 08:35 Patient medically screened. ms3 12:32 Differential diagnosis: gastritis, gastroesophageal reflux disease, non-specific abd ms3 pain, Peptic Ulcer Disease. Data reviewed: vital signs, nurses notes, and as a result, I will discharge patient. I considered the following discharge prescriptions or medication management in the emergency department Medications were administered in the Emergency Department. See MAR. Independent interpretation of the following test(s) in the Emergency Department CT Scan: My interpretation is CT images reviewed by me do not reveal free air. Counseling: I had a detailed discussion with the patient and/or guardian regarding the historical points, exam findings, and any diagnostic results supporting the discharge/admit diagnosis, lab results, radiology results, the need for outpatient follow up, to return to the emergency department if symptoms worsen or persist or if there are any questions or concerns that arise at home. Special discussion: Based on the patient's Hx, exam, and Dx evaluation, there is no indication for emergent surgery or inpatient Tx. It is understood by the patient/guardian that if the Sx's persist or worsen they need to return immediately for re-evaluation. ED course: Discussed labs, imaging with patient. Patient to follow-up with primary care physician in 2 to 3 days. Patient understands and agrees with plan. All questions were answered. Return precautions discussed include worsening symptoms, or any other concerns. 05/13 08:35 Order name: CBC with Diff; Complete Time: 10:06 ms3 05/13 08:35 Order name: CMP; Complete Time: 10:06 ms3 05/13 08:35 Order name: Lipase; Complete Time: 10:06 ms3 05/13 08:35 Order name: Test, Serum; Complete Time: 10:06 ms3 05/13 08:35 Order name: CT Abd/Pelvis - IV Contrast Only; Complete Time: 10:32 ms3 05/13 08:35 Order name: IV Saline Lock; Complete Time: 08:36 ms3 05/13 08:35 Order name: Labs collected and sent; Complete Time: 08:36 ms3 Administered Medications: 08:52 Drug: Famotidine IVP 20 mg IVP once; dilute with 10 mL 0.9% NaCl; give over 2 minutes ld1 Route: IVP; Site: left antecubital; 10:06 Follow up: Response: No adverse reaction ld1 08:52 Drug: Ondansetron IVP 4 mg IVP once; over 2 minutes Route: IVP; Site: left antecubital; ld1 10:06 Follow up: Response: No adverse reaction ld1 08:52 Drug: morphine IVP or IV 4 mg IVP once over 4 mins Route: IVP; Infused Over: 4 mins; ld1 Site: left antecubital; 10:06 Follow up: Response: No adverse reaction ld1 10:06 Drug: morphine IVP or IV 4 mg IVP once over 4 mins Route: IVP; Infused Over: 4 mins; ld1 Site: left antecubital; 11:01 Follow up: Response: No adverse reaction mb9 Disposition Summary: 05/13/24 10:48 Discharge Ordered Notes: Location: Home ms3 Condition: Stable ms3 Diagnosis - Upper abdominal pain, unspecified ms3 Followup: ms3 - With: Private Physician - When: 2 - 3 days - Reason: Discharge Instructions: - Discharge Summary Sheet ms3 - Abdominal Pain, Adult ms3 Forms: - Medication Reconciliation Form ms3 - Antibiotic Education ms3 - Prescription Opioid Use ms3 - Patient Portal Instructions ms3 - Leadership Thank You Letter ms3 Prescriptions: - Pepcid 20 mg Oral Tablet - take 1 tablet ORAL route every 12 hours for 5 days; 10 tablet; Refills: 0, ms3 Product Selection Permitted - dicyclomine 20 mg Oral tablet - take 1 tablet ORAL route 3 times per day; 20 tablet; Refills: 0, Product ms3 Selection Permitted Signatures: Dispatcher [employer] EDGurjit Lange DO DO ms3 Frances Owusu RN RN ld1 Genesis Mahoney RN mb9
[2024-05-13 11:06] VITALS: TEMP 98.1; O2SAT 100
[2024-05-13 11:07] VITALS: BP 106/79
== END 2024-05-13 11:01 | disposition home or self-care (01) ==
LOC: ER 08:28
DX: R10.12 Left upper quadrant pain (principal)
CPT/HCPCS: 36415; 74177; 80053; 83690; 84703; 85025; 96374; 96375; 99285; J2405; Q9967